=== PATIENT | male | born 1950 | race Caucasian/White ===

== ENCOUNTER → 2018-09-06 | Outpatient (CLI) | payer OTHER | LOC: FIMAGING 09:03 | PROVIDERS: ATTEND Orthopaedic Surgery | DX: M22.2X1 Patellofemoral disorders, right knee (principal); M22.2X2 Patellofemoral disorders, left knee; M22.41 Chondromalacia patellae, right knee; M22.42 Chondromalacia patellae, left knee ==

== ENCOUNTER → 2019-05-12 | Outpatient (CLI) | payer OTHER | LOC: FIMAGING 09:01 ==